=== PATIENT | female | born 1935 | race African-American/Black ===

== ENCOUNTER 2016-06-09 23:51 | Inpatient (IN) | payer BC, MEDICARE ==
[~2016-06-09] VITALS: Ht 160 cm; Wt 58.7 kg
[~2016-06-09 23:51] MED LIST: ACET300T4 PO; AMLO5CAP40 PO
[2016-06-10] MEDS ORDERED: SODIUM CHLORIDE 0.9% 1,000 ML IV ONE (00:54)
[2016-06-10] MEDS ORDERED: ONDANSETRON HCL 4 MG/2 ML VIAL IV ONE (01:00)
[2016-06-10 01:10] LABS: Basophils # (auto) 0 uL; Basophils % (auto) 0.4 % (0.0-2.0); Eosinophils # (auto) 0 uL; Hematocrit 43.5 % (36.0-46.0); Hemoglobin 14.2 g/dL (12.2-16.2); Lymphocytes # (auto) 1.3 uL; Lymphocytes % (auto) 11.5 % (10.0-50.0); Mean Corpuscular Hemoglobin 28.2 pg (28.0-32.0); Mean Corpuscular Hgb Conc. 32.6 g/dL (32.0-36.0); Mean Corpuscular Volume 86.6 fL (80.0-100.0); Mean Platelet Volume 8.2 fL (7.4-10.4); Monocytes # (auto) 0.3 uL; Monocytes % (auto) 2.7 % (0.0-12.0); Neutrophils # (auto) 9.5 uL; Neutrophils % (auto) 85.4 % (37.0-80.0); Platelet Count (auto) 335 10^3/uL (140-450); Red Cell Distribution Width 12.8 % (11.6-16.0); White Blood Cell 11.1 10^3/uL (4.4-10.8)
[2016-06-10 01:17] LABS: Calcium 8.8 mg/dL (8.5-10.1)
[2016-06-10 01:19] LABS: Potassium 2.7 mmol/L (3.5-5.1)
[2016-06-10 01:20] LABS: Bilirubin, Total 0.4 mg/dL (0.2-1.0); Total Protein 8.9 g/dL (6.4-8.2)
[2016-06-10] MEDS ORDERED: POTASSIUM CHL 20 Meq TABLET PO ONE (01:30)
[2016-06-10] MEDS ORDERED: POTASSIUM CHL 20MEQ/100ML 100 ML IV ONE ×2 (01:30→04:45)
[2016-06-10] MEDS ORDERED: METOCLOPRAMIDE HCL 5MG/ml INJ 2ml VIAL IV ONE (03:00)
[2016-06-10] MEDS ORDERED: POTASSIUM CHL 10% (20 MEQ/15ML) ORAL SOLN PO ONE (03:15)
[2016-06-10] MEDS ORDERED: cefTRIAXone 1GM/50ML D5W 50 ML IV ONE (03:15)
[2016-06-10] MEDS ORDERED: PANTOPRAZOLE SODIUM 40 MG/10 ML VIAL IV ONE (04:45)
[2016-06-10] MEDS ORDERED: TEMAZEPAM 15 MG CAP PO PRN (04:45)
[2016-06-10] MEDS: SODIUM CHLORIDE 0.9% 1,000 ML IV SCH ×2 (04:45→17:20)
[2016-06-10] MEDS ORDERED: ONDANSETRON HCL 4 MG/2 ML VIAL IV PRN (04:45)
[2016-06-10 06:06] VITALS: BP 178/95
[2016-06-10] MEDS ORDERED: INFLUENZA QUAD 2016-2017 0.5 ML SYRG IM ONE ×2 (06:45→08:00)
[2016-06-10] MEDS ORDERED: PNEUMOCOCCAL VACC POLYS 25 MCG/0.5 ML VIAL IM ONE ×2 (06:45→08:00)
[2016-06-10 09:00] VITALS: BP 159/78
[2016-06-10] MEDS: amLODIPine BESYLATE 5 MG TAB PO SCH (10:39)
[2016-06-10] MEDS: BENAZEPRIL HCL 10 MG TAB PO SCH (10:39)
[2016-06-10 12:11] VITALS: BP 167/83
[2016-06-10] MEDS: PROMETHAZINE HCL 25 MG/ML 1ML IV PRN ×2 (12:33→20:14)
[2016-06-10 12:54] LABS: BUN/Creatinine Ratio 13.9; Calcium 8.8 mg/dL (8.5-10.1); Magnesium 2.2 mg/dL (1.6-2.6)
[2016-06-10 13:09] LABS: Potassium 2.9 mmol/L (3.5-5.1)
[2016-06-10] MEDS: POTASSIUM CHL 20MEQ/100ML 100 ML IV SCH ×2 (13:36→16:57)
[2016-06-10 17:11] VITALS: BP 164/85
[2016-06-10] MEDS: ACETAMINOPHEN 325 MG TAB PO PRN (17:17)
[2016-06-10 18:19] LABS: Calcium 9.1 mg/dL (8.5-10.1)
[2016-06-10 20:00] VITALS: BP 138/75
[2016-06-10] MEDS: AMITRIPTYLINE HCL 25 MG TAB PO SCH (21:30)
[2016-06-11 02:22] LABS: Urine Bilirubin Negative (Negative); Urine Blood Negative /uL (Negative); Urine Color Yellow (Yellow); Urine Glucose Normal (Normal); Urine Ketone Negative (Negative); Urine Nitrite Negative (Negative); Urine RBC 2 /hpf (0 - 4); Urine Squamous Epithelial Cell FEW /hpf (<5); Urine Urobilinogen Normal (Negative)
[2016-06-11] MEDS: SODIUM CHLORIDE 0.9% 1,000 ML IV SCH ×2 (05:13→22:00)
[2016-06-11] MEDS: PROMETHAZINE HCL 25 MG/ML 1ML IV PRN ×2 (05:52→15:46)
[2016-06-11 05:53] VITALS: BP 164/93
[2016-06-11] MEDS: HYDROcodone-ACET 5/325MG TAB PO PRN ×3 (05:53→20:37)
[2016-06-11 05:54] LABS: Basophils # (auto) 0 uL; Basophils % (auto) 0.3 % (0.0-2.0); Eosinophils # (auto) 0 uL; Hematocrit 46.1 % (36.0-46.0); Hemoglobin 14.8 g/dL (12.2-16.2); Lymphocytes % (auto) 20.3 % (10.0-50.0); Mean Corpuscular Hemoglobin 28.5 pg (28.0-32.0); Mean Corpuscular Volume 88.9 fL (80.0-100.0); Mean Platelet Volume 8.6 fL (7.4-10.4); Monocytes # (auto) 1.1 uL; Monocytes % (auto) 7.3 % (0.0-12.0); Neutrophils # (auto) 10.6 uL; Neutrophils % (auto) 72.1 % (37.0-80.0); Platelet Count (auto) 319 10^3/uL (140-450); SUSPECT VIEW TRANSMISSION; White Blood Cell 14.7 10^3/uL (4.4-10.8)
[2016-06-11 06:17] LABS: BUN/Creatinine Ratio 16.4; Calcium 8.9 mg/dL (8.5-10.1); Potassium 3.1 mmol/L (3.5-5.1)
[2016-06-11] MEDS ORDERED: POTASSIUM CHLORIDE 40 MEQ, LIDOCAINE 1% (LOCAL ANESTH.) 4 ML in SODIUM CHL 0.9% 250 ML IV ONE (08:15)
[2016-06-11 09:00] VITALS: BP 158/92
[2016-06-11] MEDS ORDERED: cefTRIAXone 1GM/50ML D5W 50 ML IV SCH (09:00)
[2016-06-11] MEDS: amLODIPine BESYLATE 5 MG TAB PO SCH (09:27)
[2016-06-11] MEDS: PANTOPRAZOLE SODIUM 40 MG/10 ML VIAL IV SCH (09:27)
[2016-06-11] MEDS: BENAZEPRIL HCL 10 MG TAB PO SCH (09:28)
[2016-06-11] MEDS: ACETAMINOPHEN 325 MG TAB PO PRN (09:28)
[2016-06-11] MEDS ORDERED: LEVOFLOXACIN 500MG 100 ML IV SCH (12:30)
[2016-06-11 16:39] VITALS: BP 156/78
[2016-06-11 22:00] VITALS: BP 144/82
[2016-06-11] MEDS: AMITRIPTYLINE HCL 25 MG TAB PO SCH (22:00)
[2016-06-12] MEDS: ACETAMINOPHEN 325 MG TAB PO PRN (01:31)
[2016-06-12 05:09] LABS: Basophils # (auto) 0.1 uL; Basophils % (auto) 0.7 % (0.0-2.0); Eosinophils # (auto) 0 uL; Eosinophils % (auto) 0.3 % (0.0-7.0); Hematocrit 44.5 % (36.0-46.0); Hemoglobin 14.5 g/dL (12.2-16.2); Lymphocytes # (auto) 3.8 uL; Lymphocytes % (auto) 29.4 % (10.0-50.0); Mean Corpuscular Hemoglobin 28.5 pg (28.0-32.0); Mean Corpuscular Hgb Conc. 32.6 g/dL (32.0-36.0); Mean Corpuscular Volume 87.2 fL (80.0-100.0); Mean Platelet Volume 7.7 fL (7.4-10.4); Monocytes # (auto) 0.9 uL; Monocytes % (auto) 7.3 % (0.0-12.0); Neutrophils # (auto) 8.1 uL; Neutrophils % (auto) 62.3 % (37.0-80.0); Platelet Count (auto) 313 10^3/uL (140-450); Red Cell Distribution Width 12.8 % (11.6-16.0); White Blood Cell 12.9 10^3/uL (4.4-10.8)
[2016-06-12 05:24] LABS: Partial Thromboplastin Time 27.9 sec (22.64-33.71); Prothrombin Time 12.3 sec (9.37-12.3)
[2016-06-12 05:31] LABS: BUN/Creatinine Ratio 15.9; Calcium 8.7 mg/dL (8.5-10.1); Magnesium 2.2 mg/dL (1.6-2.6); Potassium 3.2 mmol/L (3.5-5.1)
[2016-06-12 05:32] LABS: INR 1.19 (0.9-1.15)
[2016-06-12] MEDS: PROMETHAZINE HCL 25 MG/ML 1ML IV PRN ×2 (05:33→11:19)
[2016-06-12 06:08] LABS: Platelet Estimate Adequate
[2016-06-12 06:10] LABS: Hypersegmented Neutrophils Present; RBC Morphology Normal
[2016-06-12] MEDS: SODIUM CHLORIDE 0.9% 1,000 ML IV SCH (06:57)
[2016-06-12 09:00] VITALS: BP 154/86
[2016-06-12] MEDS: PANTOPRAZOLE SODIUM 40 MG/10 ML VIAL IV SCH (09:48)
[2016-06-12] MEDS: BENAZEPRIL HCL 10 MG TAB PO SCH (09:52)
[2016-06-12] MEDS: amLODIPine BESYLATE 5 MG TAB PO SCH (09:53)
[2016-06-12] MEDS ORDERED: LEVOFLOXACIN 250MG 50 ML IV SCH (10:00)
[2016-06-12 13:27] VITALS: BP 162/95
[2016-06-12] MEDS ORDERED: POTASSIUM CHL 10% (20 MEQ/15ML) ORAL SOLN PO ONE ×2 (15:30→18:45)
[2016-06-12] MEDS ORDERED: ONDANSETRON HCL 4 MG/2 ML VIAL IV ONE (16:30)
[2016-06-12] MEDS ORDERED: PROM25TA5 PO (16:39)
[2016-06-12] MEDS ORDERED: METO25TA5 PO (16:39)
[2016-06-12] MEDS ORDERED: LEVO500T3 PO (16:39)
[2016-06-12] MEDS ORDERED: METOPROLOL TARTRATE 25 MG TAB PO SCH (16:45)
[2016-06-12 17:14] VITALS: BP 137/81
[2016-06-12 17:31] VITALS: BP 137/81
[2016-06-12] MEDS: HYDROcodone-ACET 5/325MG TAB PO PRN (18:29)
[2016-06-12] MEDS ORDERED: INFLUENZA QUAD 2016-2017 0.5 ML SYRG IM ONE (19:15)
[2016-06-12] MEDS ORDERED: PNEUMOCOCCAL VACC POLYS 25 MCG/0.5 ML VIAL IM ONE (19:15)
== END 2016-06-12 19:15 | disposition home health service (06) | DRG 872 ==
LOC: ER 23:51 → EDBD 23:51 → OVERFLOW 23:52 → CENTRAL 06-10 05:43
PROVIDERS: ADMIT Nurse Practitioner; ATTEND Internal Medicine
DX: A41.9 Sepsis, unspecified organism (principal); N39.0 Urinary tract infection, site not specified; K52.9 Noninfective gastroenteritis and colitis, unspecified; K29.00 Acute gastritis without bleeding; E86.0 Dehydration; F32.9 Major depressive disorder, single episode, unspecified; K21.9 Gastro-esophageal reflux disease without esophagitis; E87.6 Hypokalemia; I10 Essential (primary) hypertension; Z87.442 Personal history of urinary calculi; Z90.49 Acquired absence of other specified parts of digestive tract; Z88.8 Allergy status to other drugs, medicaments and biological substances; Z90.710 Acquired absence of both cervix and uterus; Z88.2 Allergy status to sulfonamides; Z23 Encounter for immunization
CPT/HCPCS: 36415; 74176; 80048; 80053; 81001; 83690; 83735; 85025; 85049; 85610; 85730; 87040; 87081; 93005; 94761; 96361; 96365; 96366; 96375; 96376; C9113; J0696; J1956; J2001; J2405; J3480

== ENCOUNTER 2017-06-08 17:47 | Emergency (ER) | payer BC ==
[~2017-06-08] VITALS: Ht 180.3 cm; Wt 88.5 kg
[~2017-06-08 17:47] MED LIST changes: +LEVO500T21 PO; +METO25TA5 PO; +PROM25TA5 PO
[2017-06-09] MEDS ORDERED: ACETAMINOPHEN/CODEINE#3 (300/30mg) TAB PO ONE (01:30)
[2017-06-09 02:17] VITALS: BP 132/90
== END 2017-06-09 04:04 | disposition home or self-care (01) ==
LOC: EDBD 17:47 → ER 17:51
DX: M79.1 Myalgia (principal); M54.9 Dorsalgia, unspecified; G89.29 Other chronic pain; I10 Essential (primary) hypertension; Z76.0 Encounter for issue of repeat prescription; Z87.442 Personal history of urinary calculi; Z88.2 Allergy status to sulfonamides; Z88.8 Allergy status to other drugs, medicaments and biological substances

== ENCOUNTER 2018-02-03 17:12 | Emergency (ER) | payer BC ==
[~2018-02-03] VITALS: Ht 167.6 cm; Wt 68.0 kg
[2018-02-03 19:08] LABS: BUN/Creatinine Ratio 10.6; Calcium 8.9 mg/dL (8.5-10.1); Potassium 3.5 mmol/L (3.5-5.1)
[2018-02-03 19:11] LABS: Bilirubin, Total 0.4 mg/dL (0.2-1.0); Total Protein 8.4 g/dL (6.4-8.2)
[2018-02-03 19:41] LABS: Basophils # (auto) 0.3 uL; Basophils % (auto) 4.7 % (0.0-2.0); Eosinophils # (auto) 0.8 uL; Eosinophils % (auto) 11.7 % (0.0-7.0); Hematocrit 44.4 % (36.0-46.0); Hemoglobin 14.5 g/dL (12.2-16.2); Lymphocytes # (auto) 1.1 uL; Mean Corpuscular Hemoglobin 28.7 pg (28.0-32.0); Mean Corpuscular Hgb Conc. 32.7 g/dL (32.0-36.0); Mean Corpuscular Volume 87.9 fL (80.0-100.0); Monocytes # (auto) 0.1 uL; Monocytes % (auto) 2.1 % (0.0-12.0); Neutrophils # (auto) 4.8 uL; Neutrophils % (auto) 66.5 % (37.0-80.0); Nucleated Red Blood Cells % 0.2 %; Platelet Count (auto) 394 10^3/uL (140-450); Red Blood Cells 5.05 10^6/uL (4.0-5.20); Red Cell Distribution Width 13.4 % (11.8-14.3); White Blood Cell 7.3 10^3/uL (4.4-10.8)
[2018-02-03 23:55] VITALS: BP 140/74
[2018-02-04] MEDS ORDERED: SODIUM CHLORIDE 0.9% 1,000 ML IV ONE
[2018-02-04 03:54] LABS: Urine Bacteria FEW /hpf (None Seen); Urine Blood Negative /uL (Negative); Urine Mucus FEW (None Seen); Urine Specific Gravity 1.011 (1.001-1.035); Urine WBC 41 /hpf (0 - 5)
== END 2018-02-04 03:45 | disposition home or self-care (01) ==
LOC: EDBD 17:12 → ER 17:12
DX: E86.0 Dehydration (principal); I10 Essential (primary) hypertension; Z76.0 Encounter for issue of repeat prescription; Z88.2 Allergy status to sulfonamides; Z88.8 Allergy status to other drugs, medicaments and biological substances; Z90.710 Acquired absence of both cervix and uterus; Z90.49 Acquired absence of other specified parts of digestive tract
CPT/HCPCS: 36415; 80053; 81001; 82553; 84484; 85025; 96360; 96361; 99285; J7030

== ENCOUNTER 2023-07-15 19:57 | Emergency (ER) | payer BC ==
[~2023-07-15] VITALS: Ht 157.5 cm; Wt 54.5 kg
[~2023-07-15 19:57] MED LIST changes: -ACET300T4 PO; +ACET300T58 PO; +AMLO5CAP2 PO; -AMLO5CAP40 PO; -LEVO500T21 PO; +LEVO500T31 PO; +PROM25TA10 PO; -PROM25TA5 PO
[2023-07-15 23:00] LABS: Basophils # (auto) 0 10 ^3/uL (0-0.2); Basophils % (auto) 0.3 % (0.0-2.0); Eosinophils # (auto) 0 10 ^3/uL (0-0.8); Eosinophils % (auto) 0.2 % (0.0-7.0); Hematocrit 45.1 % (36.0-46.0); Hemoglobin 14.7 g/dL (12.2-16.2); Lymphocytes # (auto) 1.4 10 ^3/uL (0.4-5.4); Lymphocytes % (auto) 12.5 % (10.0-50.0); Mean Corpuscular Hemoglobin 28.9 pg (28.0-32.0); Mean Corpuscular Hgb Conc. 32.6 g/dL (32.0-36.0); Mean Corpuscular Volume 88.7 fL (80.0-100.0); Monocytes # (auto) 0.3 10 ^3/uL (0-1.3); Neutrophils # (auto) 9.3 10 ^3/uL (1.6-8.6); Red Blood Cells 5.08 10^6/uL (4.0-5.20); Red Cell Distribution Width 13.9 % (11.8-14.3)
[2023-07-15 23:03] LABS: Urine Bacteria FEW /hpf (None Seen); Urine Blood Negative /uL (Negative); Urine Clarity Clear (Clear); Urine Color Yellow (Yellow); Urine Protein, UAD Negative (Negative); Urine Urobilinogen Normal (Negative); Urine WBC 59 /hpf (0 - 5); Urine pH 6.5 (5.0-8.0)
[2023-07-15 23:10] LABS: Chloride 105 mmol/L (98-107); Potassium 3.6 mmol/L (3.5-5.1); Sodium 138 mmol/L (136-145)
[2023-07-15 23:11] LABS: Anion Gap 10 (5-15); Carbon Dioxide 23 mmol/L (20-30)
[2023-07-15 23:12] LABS: Calcium 9.6 mg/dL (8.7-10.4)
[2023-07-15 23:16] LABS: Blood Urea Nitrogen 9 mg/dL (9-23); Glucose 178 mg/dL (74-106)
[2023-07-15] MEDS ORDERED: CEPH500C PO (23:40)
[2023-07-16 00:49] VITALS: BP 148/71; PULSE 79; RESP 16; TEMP 97.6; O2SAT 96
== END 2023-07-16 00:48 | disposition home or self-care (01) ==
LOC: ER 19:57 → EDBD 19:57 → ER 07-16 00:48
DX: N39.0 Urinary tract infection, site not specified (principal); I10 Essential (primary) hypertension; Z90.49 Acquired absence of other specified parts of digestive tract; Z87.442 Personal history of urinary calculi; Z88.2 Allergy status to sulfonamides; Z88.6 Allergy status to analgesic agent
CPT/HCPCS: 36415; 74176; 80048; 81001; 85025; 93005